=== PATIENT | female | born 1965 | race Caucasian/White ===

== ENCOUNTER → 2016-08-06 | Outpatient (CLI) | payer OTHER | LOC: NUC 07-25 09:21 | DX: Z13.820 Encounter for screening for osteoporosis (principal); M81.0 Age-related osteoporosis without current pathological fracture; Z78.0 Asymptomatic menopausal state; M85.80 Other specified disorders of bone density and structure, unspecified site ==

== ENCOUNTER 2017-02-11 00:36 | Emergency (ER) | payer OTHER ==
[~2017-02-11] VITALS: Ht 157.5 cm; Wt 41.1 kg
[2017-02-11] MEDS ORDERED: DOXYCYCLINE 10100 MG PO (00:48)
[2017-02-11] MEDS ORDERED: TEGRETOL XR400 MG PO (00:48)
[2017-02-11] MEDS ORDERED: KEPPRA 500 MG500 M1 PO (00:49)
[2017-02-11] MEDS ORDERED: LEVOTHYROXIN0.025 MG PO (00:49)
[2017-02-11] MEDS ORDERED: OYSTER SHELL C500 MG PO (00:56)
[2017-02-11] MEDS ORDERED: OMEPRAZOLE 20 M20 M1 PO (00:56)
[2017-02-11] MEDS ORDERED: METRONIDAZOLE45 GM TP (00:56)
[2017-02-11] MEDS ORDERED: MIRALAX255 GM PO (00:57)
[2017-02-11] MEDS ORDERED: PREPLUS CA-FE1 EACH PO (00:57)
[2017-02-11] MEDS ORDERED: BENECALORI7.5 KCAL/1 PO (00:58)
[2017-02-11] MEDS ORDERED: SORBITOL SOLUT500 ML PO (01:00)
[2017-02-11] MEDS ORDERED: VITAMIN D2000 UNIT PO (01:01)
[2017-02-11] MEDS ORDERED: NORCO 5-325 TA1 EACH PO (03:03)
[2017-02-11] MEDS ORDERED: IBUPROFEN 200200 M1 PO (03:03)
[2017-02-11] MEDS ORDERED: SENOKOT-S1 TA1 PO (03:03)
[2017-02-11 03:22] VITALS: BP 116/73
== END 2017-02-11 03:24 | disposition home or self-care (01) ==
LOC: ER 00:36
DX: S82.301A Unspecified fracture of lower end of right tibia, initial encounter for closed fracture (principal); S82.831A Other fracture of upper and lower end of right fibula, initial encounter for closed fracture; E03.9 Hypothyroidism, unspecified; F73 Profound intellectual disabilities; M19.90 Unspecified osteoarthritis, unspecified site; Z88.1 Allergy status to other antibiotic agents; X58.XXXA Exposure to other specified factors, initial encounter; Y93.89 Activity, other specified; Y92.89 Other specified places as the place of occurrence of the external cause; Y99.8 Other external cause status

== ENCOUNTER 2017-02-17 06:15 | Inpatient (IN) | payer OTHER ==
[~2017-02-17] VITALS: Ht 157.5 cm; Wt 40.8 kg
--- NOTE | ~2017-02-17 | O ---
[facility] [place] [address] OPERATIVE REPORT Name: RUBIO SANTOS JULIO CÉSAR Room #: 533-P [facility] IN M.R.#: [id number] Admission: 02/17/17 Attend Phys: Dirk Snider MD Discharge: 02/18/17 Date of : 69 Report #: [id number] THIS REPORT FOR: //name// CC: Marisol Snider DATE OF SERVICE: 02/17/2017 PREOPERATIVE DIAGNOSES: 1. Right tibia shaft fracture. 2. Right ankle retained hardware. POSTOPERATIVE DIAGNOSES: 1. Right tibia shaft fracture. 2. Right ankle retained hardware. PROCEDURE: 1. Right tibia intramedullary nail. 2. Right ankle hardware removal. SURGEON: Dirk Snider M.D. GARMENT FITTER: DARLEEN Torres, critical for positioning and safe performance of the procedure. ANESTHESIA: General. ESTIMATED BLOOD LOSS: Minimal. DRAINS: No drains. TOURNIQUET TIME: 15 minutes. COMPLICATIONS: There were no complications from the procedure. DESCRIPTION OF PROCEDURE: The patient was brought to the operating room where she was placed under general anesthesia. Once under adequate general anesthesia, her right lower extremity was prepped and draped in sterile manner. The extremity was elevated, exsanguinated, tourniquet placed to 250 mmHg. Utilizing fluoroscopy for guidance, the two distal medial malleolus screws were identified and subsequently a small 2 cm incision was made over the screw heads with dissection down to the screw heads and subsequent extraction of the screws with the small fragment screwdriver. Once these were removed, we proceeded to the knee and an anterior incision over the patella was made. This was dissected down to the paratenon, which was then incised exposing the tendon, which was then swept aside and a curved cannulated awl was placed down the anterior tibial [facility] [address] [place] [address] OPERATIVE REPORT Name: RUBIO SANTOS Room #: 533-P [facility] IN .R.#: [id number] Admission: 02/17/17 Attend Phys: Dirk Snider MD Discharge: 02/18/17 Date of : 69 Report #: [id number] ____. The guidewire was then placed down the shaft of the femur subsequently under fluoroscopic guidance and subsequently the tourniquet was let down. The bone was then reamed to 10 mm and a 9 mm tibial intramedullary nail from the [employer] set was then placed. Fixation proximally with two static locking screws was achieved and using the outrigger jig. Utilizing fluoroscopy distally two transverse locking screws were placed across the distal tibia. Excellent fixation and alignment was achieved in this manner. The wounds were irrigated copiously and closed with 2-0 Vicryl in the deep and subcutaneous tissues and lori for the skin. Wounds were dressed with Xeroform, 4 x 4s, and sterile soft compressive dressing with a short leg splint was placed. Tourniquet was let down at approximately 15 minutes. Toes were pink and warm with good capillary refill. There were no complications from the procedure. The patient tolerated the procedure well and went to the recovery room without incident. <ELECTRONICALLY SIGNED> By: Dirk Snider MD 02/19/17 1202 [id number] [id number] Dirk Snider MD /nt
[~2017-02-17 06:15] MED LIST: BENECALORI7.5 KCAL/1 PO; DOXYCYCLINE 10100 MG PO; IBUPROFEN 200200 M1 PO; KEPPRA 500 MG500 M1 PO; LEVOTHYROXIN0.025 MG PO; METRONIDAZOLE45 GM TP; MIRALAX255 GM PO; NORCO 5-325 TA1 EACH PO; OMEPRAZOLE 20 M20 M1 PO; OYSTER SHELL C500 MG PO; PREPLUS CA-FE1 EACH PO; SENOKOT-S TABL1 EACH PO; SENOKOT-S1 TA1 PO; SORBITOL SOLUT500 ML PO; TEGRETOL XR400 MG PO; VITAMIN D2000 UNIT PO
[2017-02-17 10:11] VITALS: BP 117/77
[2017-02-17 20:00] VITALS: BP 124/79
[2017-02-18] VITALS: BP 100/70
[2017-02-18 04:00] VITALS: BP 102/67
[2017-02-18 07:01] LABS: HEMATOCRIT 31.1 % (37.0-47.0); HEMOGLOBIN 10.7 gm/dL (12.0-15.0)
[2017-02-18 07:11] LABS: POTASSIUM 3.8 mmol/L (3.5-5.1)
[2017-02-18 07:15] VITALS: BP 110/76
== END 2017-02-18 16:45 | disposition hospice, home (50) | DRG 494 ==
LOC: TBA 06:15 → 5S 06:15 → PRE 08:39 → 5S 13:29
PROVIDERS: Orthopaedic Surgery Foot and Ankle Surgery
PROC: 0SPFX4Z Removal of Internal Fixation Device from Right Ankle Joint, External Approach (ICD-10-PCS; principal; 2017-02-17)
PROC: 0QHG06Z Insertion of Intramedullary Internal Fixation Device into Right Tibia, Open Approach (ICD-10-PCS; principal; 2017-02-17)
DX: S82.201A Unspecified fracture of shaft of right tibia, initial encounter for closed fracture (principal); S82.401A Unspecified fracture of shaft of right fibula, initial encounter for closed fracture; G40.909 Epilepsy, unspecified, not intractable, without status epilepticus; Z88.1 Allergy status to other antibiotic agents; Z79.899 Other long term (current) drug therapy; W18.39XA Other fall on same level, initial encounter; Y93.89 Activity, other specified; Y92.89 Other specified places as the place of occurrence of the external cause; Y99.8 Other external cause status
CPT/HCPCS: 10785; 50010; 50101; 50386; 50417; 50635; 51412; 55430; 56524; 56525; 56526; 62110; 62900; 70005

== ENCOUNTER 2018-02-18 16:16 | Inpatient (IN) | payer OTHER ==
[~2018-02-18] VITALS: Ht 157.5 cm; Wt 42.2 kg
--- NOTE | ~2018-02-18 | HC ---
[facility] [place] [address] CONSULTATION Name: DANIELLERUBIO JULIO CÉSAR Room #: 358-P ADM IN M.R.#: [id number] Admission: 02/18/18 Attend Phys: Porsche Recinos Discharge: Date of : 69 Report #: [id number] THIS REPORT FOR: //name// CC: Porsche Ordoñez DATE OF SERVICE: 02/19/2018 INFECTIOUS DISEASES CONSULTATION REASON FOR CONSULTATION: I was asked to evaluate concerning peritonitis and intra-abdominal abscess. HISTORY OF PRESENT ILLNESS: The patient is a 52-year-old with underlying cerebral palsy and mental retardation with seizure disorder, who lives in a correction. History was gleaned from the patient's family and her caregiver. Apparently, 5 days ago, developed some nausea and vomiting with anorexia. They could not determine whether she was having any abdominal discomfort otherwise. Over the ensuing several days, her stool output decreased. No fever, chills or sweats. She worsened and on 02/18/2018, presented to the Emergency Room. She had not eaten for several days. CT imaging showed evidence of a right lower abdomen fluid collection, consistent with abscess. There was inflammation at the cecum, suspecting a periappendiceal abscess. There was no free air in the abdomen. She was placed on IV antibiotics including Zosyn, given IV fluids and admitted to the medical menard. ALLERGIES: CLARITHROMYCIN. MEDICATIONS: As noted on her MAR, including Zosyn. PAST MEDICAL HISTORY: Infantile spasms, cerebral palsy and seizure disorder. She is nonverbal, unable to communicate, otherwise. Has had a previous ankle fracture with ORIF. FAMILY HISTORY: Otherwise, noncontributory. SOCIAL HISTORY: Lives in a correction and has attentive parents. Nonsmoker. No significant alcohol intake. REVIEW OF SYSTEMS: The patient was unable to give any details. From discussion with her caregiver, however, she has had no rash or decubiti. There has been no cough or sputum production. She has had no syncopal episodes or evidence of seizure. Unable to obtain any further history. PHYSICAL EXAMINATION: [facility] [address] [place] [address] CONSULTATION Name: RUBIO SANTOS JULIO CÉSAR Room #: 358-P [facility] IN M.R.#: [id number] Admission: 02/18/18 Attend Phys: Porsche Recinos Discharge: Date of : 69 Report #: [id number] VITAL SIGNS: Afebrile with stable vital signs. GENERAL: She was alert. She did not like to cooperate with exam. HEENT: Eyes unremarkable. Mouth was dry. No thrush. NECK: Supple. No adenopathy. LUNGS: Clear. HEART: Regular, without murmur. No gallop or rub. ABDOMEN: Mildly distended. Tender throughout. I could not localize specific point tenderness. No hepatosplenomegaly or mass. GENITOURINARY: External genitalia unremarkable. EXTREMITIES: Unremarkable. NEUROLOGICAL EXAMINATION: Nonfocal. LABORATORY STUDIES: CT scan imaging as noted above, with the addition of obstipation and chronic constipation with large amount of stool in the colon. She also has evidence of esophagitis with thickening and some inflammatory changes in the lower esophagus. Chest x-ray unremarkable, with ileus evident. Hemoglobin 10, platelet count 372,000 and white count 9.8. Creatinine 0.9. Liver function test normal. Urinalysis with 2+ protein, positive for bacteria. Lipase 552. Blood and urine cultures are pending. IMPRESSION: 1. A 52-year-old with intra-abdominal process. I am suspecting perforated appendicitis. In her age group, other inflammatory bowel disease, cancer or perforation due to obstipation also possible. Ischemic bowel seems less likely. In addition, has evidence of esophagitis. Likely has reflux. 2. Cerebral palsy. 3. Mental retardation. RECOMMENDATIONS: We will continue broad antibiotic coverage for intra-abdominal pathogens. We will arrange drainage procedure in Interventional Radiology. General Surgery consultation, for I suspect will need further intervention in the near future. Once we drain the abscess, we will send for bacterial culture. Follow laboratory studies, including CBC and chemistry. Repeat lipase to ensure this normalizes. May wish further gastroenterology evaluation of her esophagus at the time of surgery. Plan of care was discussed with the patient's family at the bedside and nursing staff. <ELECTRONICALLY SIGNED> By: Orlando Mai MD 02/20/18 1134 [id number] Orlando Mai MD /nt
[2018-02-18 16:29] VITALS: BP 96/68
[2018-02-18 16:57] LABS: HEMATOCRIT 36.3 % (37.0-47.0); HEMOGLOBIN 12.4 gm/dL (12.0-15.0); MCH 32.6 pg (26.0-34.0); MCV 95.8 fL (80.0-100.0); PLATELET COUNT 477 thou/uL (150-400); RBC 3.79 mil/uL (4.20-5.00); RDW 12.3 % (10.5-14.5); WBC 11.2 thou/uL (4.0-11.0)
[2018-02-18] MEDS ORDERED: TYLENOL325 MG PO (17:01)
[2018-02-18] MEDS ORDERED: PHENERGAN25 M1 RECTAL (17:02)
[2018-02-18 17:03] LABS: URINE BLOOD NEGATIVE (Negative); URINE CLARITY CLOUDY; URINE COLOR ORANGE; URINE GLUCOSE-RANDOM* NEGATIVE (Negative); URINE KETONES 1+ (Negative); URINE LEUKOCYTES-REFLEX NEGATIVE (Negative); URINE PROTEIN (DIPSTICK) 2+ (Negative); URINE SPECIFIC GRAVITY 1.025 (1.005-1.035)
[2018-02-18] MEDS ORDERED: MURINE EAR DROP15 ML OTIC (17:03)
[2018-02-18] MEDS ORDERED: LOPERAMIDE 2 MG2 M1 PO (17:03)
[2018-02-18 17:04] LABS: ICTOTEST (BILI CONFIRMATORY) Negative (Negative); URINE BILIRUBIN NEGATIVE (Negative); URINE NITRITE-REFLEX POSITIVE (Negative)
[2018-02-18] MEDS ORDERED: MUCINEX600 MG PO (17:04)
[2018-02-18] MEDS ORDERED: DULCOLAX5 MG RECTAL (17:04)
[2018-02-18 17:05] LABS: CALCIUM 10.3 mg/dL (8.5-10.1); CREATININE 0.9 mg/dL (0.6-1.0); POTASSIUM 4.2 mmol/L (3.5-5.1)
[2018-02-18] MEDS ORDERED: VALIUM5 MG RECTAL (17:05)
[2018-02-18 17:09] LABS: SQUAMOUS 4-10 Moderate /LPF (0-3); URINE WBC-REFLEX 0-5 Rare /HPF (0-5)
[2018-02-18 17:10] LABS: HYALINE CASTS 0-3 Few /LPF (None Seen); URINE RBC 3-10 Few /HPF (0-2)
[2018-02-18] MEDS ORDERED: ASPIRIN325 PO (17:10)
[2018-02-18 17:11] LABS: ALBUMIN 2.5 g/dL (3.4-5.0); TOTAL BILIRUBIN 0.5 mg/dL (<0.1-1.0); TOTAL PROTEIN 7.4 g/dL (6.4-8.2)
[2018-02-18 17:12] LABS: CALCIUM OXALATE >10 Many /LPF (None Seen)
[2018-02-18] MEDS ORDERED: BENECALORI7.5 KCAL/1 PO (17:12)
[2018-02-18] MEDS ORDERED: DOXYCYCLINE 10100 MG PO (17:13)
[2018-02-18] MEDS ORDERED: 24HR ALLERGY REL5 MG PO (17:14)
[2018-02-18] MEDS ORDERED: ATIVAN0.5 MG PO (17:15)
[2018-02-18 17:20] LABS: ABSOLUTE NEUTROPHILS 8.8 thou/uL (1.4-8.2); ANISOCYTOSIS 1+; ATYPICAL LYMPHS 1 %; POLYCHROMASIA OCCASIONAL
[2018-02-18 18:14] VITALS: BP 96/68
[2018-02-18 19:12] VITALS: BP 104/67
[2018-02-18] MEDS ORDERED: ROBITUSSIN100 MG/53 PO (19:52)
[2018-02-18 21:15] VITALS: BP 99/71
[2018-02-19] VITALS (14 sets, daily range): BP systolic 93–121; BP diastolic 49–74
[2018-02-19 06:16] LABS: CALCIUM 8.9 mg/dL (8.5-10.1); CREATININE 0.8 mg/dL (0.6-1.0); POTASSIUM 3.4 mmol/L (3.5-5.1)
[2018-02-19 06:19] LABS: ALBUMIN 2.1 g/dL (3.4-5.0); PHOSPHORUS 2.2 mg/dL (2.5-4.9)
[2018-02-19 11:25] LABS: HEMATOCRIT 29.6 % (37.0-47.0); MCH 33.3 pg (26.0-34.0); MCHC 33.7 g/dL (28.0-37.0); MCV 98.6 fL (80.0-100.0); RDW 12.6 % (10.5-14.5); WBC 9.8 thou/uL (4.0-11.0)
[2018-02-20 03:49] VITALS: BP 134/87
[2018-02-20 07:08] VITALS: BP 137/95
[2018-02-20 07:53] LABS: HEMATOCRIT 28.8 % (37.0-47.0); HEMOGLOBIN 9.7 gm/dL (12.0-15.0); MCHC 33.8 g/dL (28.0-37.0); MCV 97.5 fL (80.0-100.0); RBC 2.95 mil/uL (4.20-5.00); RDW 12.8 % (10.5-14.5); WBC 9.1 thou/uL (4.0-11.0)
[2018-02-20 08:29] LABS: ALBUMIN 2.2 g/dL (3.4-5.0); CALCIUM 8.5 mg/dL (8.5-10.1); CREATININE 0.8 mg/dL (0.6-1.0); PHOSPHORUS 1.3 mg/dL (2.5-4.9); POTASSIUM 3.4 mmol/L (3.5-5.1)
[2018-02-20 12:52] VITALS: BP 124/80
[2018-02-20 15:39] VITALS: BP 127/83
[2018-02-20 19:20] VITALS: BP 126/83
[2018-02-21 04:05] VITALS: BP 117/66
[2018-02-21 06:21] LABS: ALBUMIN 2.1 g/dL (3.4-5.0); CALCIUM 7.8 mg/dL (8.5-10.1); CREATININE 0.6 mg/dL (0.6-1.0); TOTAL BILIRUBIN 0.4 mg/dL (<0.1-1.0); TOTAL PROTEIN 5.4 g/dL (6.4-8.2)
[2018-02-21 06:37] LABS: POTASSIUM 2.9 mmol/L (3.5-5.1)
[2018-02-21 07:53] LABS: MAGNESIUM 1.7 mg/dL (1.8-2.4)
[2018-02-21 08:21] VITALS: BP 106/71
[2018-02-21 11:16] VITALS: BP 105/55
[2018-02-21 15:25] VITALS: BP 125/77
[2018-02-21 21:20] VITALS: BP 129/81
[2018-02-22 05:45] VITALS: BP 138/87
[2018-02-22 05:53] LABS: HEMATOCRIT 26.6 % (37.0-47.0); HEMOGLOBIN 9.1 gm/dL (12.0-15.0); MCH 32.6 pg (26.0-34.0); MCHC 34.3 g/dL (28.0-37.0); RBC 2.8 mil/uL (4.20-5.00); RDW 12.8 % (10.5-14.5); WBC 8.4 thou/uL (4.0-11.0)
[2018-02-22 06:00] LABS: MAGNESIUM 2.1 mg/dL (1.8-2.4); POTASSIUM 3.5 mmol/L (3.5-5.1)
[2018-02-22 07:30] VITALS: BP 115/69
[2018-02-22 19:10] VITALS: BP 115/79
[2018-02-23 03:30] VITALS: BP 128/93
[2018-02-23 07:53] VITALS: BP 133/81
[2018-02-23 11:50] VITALS: BP 113/74
[2018-02-23 17:38] VITALS: BP 125/75
[2018-02-23 19:30] VITALS: BP 151/89
[2018-02-24 04:45] VITALS: BP 135/73
[2018-02-24 07:07] LABS: HEMATOCRIT 25.7 % (37.0-47.0); HEMOGLOBIN 8.9 gm/dL (12.0-15.0); MCH 33.2 pg (26.0-34.0); MCHC 34.6 g/dL (28.0-37.0); MCV 95.9 fL (80.0-100.0); RBC 2.68 mil/uL (4.20-5.00); RDW 13.2 % (10.5-14.5); WBC 7.7 thou/uL (4.0-11.0)
[2018-02-24 07:31] LABS: CALCIUM 7.7 mg/dL (8.5-10.1); CREATININE 0.5 mg/dL (0.6-1.0); POTASSIUM 3.4 mmol/L (3.5-5.1)
[2018-02-24 08:04] VITALS: BP 124/81
[2018-02-24 11:28] VITALS: BP 104/69
[2018-02-24 16:02] VITALS: BP 129/91
[2018-02-24 19:40] VITALS: BP 137/84
[2018-02-25 03:30] VITALS: BP 145/89
[2018-02-25 07:48] VITALS: BP 144/98
[2018-02-25] MEDS ORDERED: CIPRO250 M1 PO (09:52)
[2018-02-25] MEDS ORDERED: FLAGYL500 MG PO (09:52)
[2018-02-25 10:45] VITALS: BP 144/98
[2018-02-25 12:02] VITALS: BP 144/98
== END 2018-02-25 12:06 | disposition home or self-care (01) | DRG 871 ==
LOC: ER 16:16 → EROBS 17:43 → 4W 17:43 → 3W 02-19 10:40 → ENTRNSPT 02-25 12:00 → EDTRNSPTSTS 02-25 12:02 → 3W 02-25 12:06
PROVIDERS: Emergency Medicine; Hospitalist; Internal Medicine; Nurse Practitioner Acute Care; Surgery
PROC: 0D9W30Z Drainage of Peritoneum with Drainage Device, Percutaneous Approach (ICD-10-PCS; principal; 2018-02-19)
PROC: 0Y9630Z Drainage of Left Inguinal Region with Drainage Device, Percutaneous Approach (ICD-10-PCS; 2018-02-19)
DX: A41.9 Sepsis, unspecified organism (principal); K35.2 Acute appendicitis with generalized peritonitis; E43 Unspecified severe protein-calorie malnutrition; K85.90 Acute pancreatitis without necrosis or infection, unspecified; N39.0 Urinary tract infection, site not specified; K56.609 Unspecified intestinal obstruction, unspecified as to partial versus complete obstruction; K56.7 Ileus, unspecified; Z68.1 Body mass index [BMI] 19.9 or less, adult; G40.909 Epilepsy, unspecified, not intractable, without status epilepticus; E03.9 Hypothyroidism, unspecified; G80.9 Cerebral palsy, unspecified; F79 Unspecified intellectual disabilities; B96.20 Unspecified Escherichia coli [E. coli] as the cause of diseases classified elsewhere; K59.09 Other constipation; E86.0 Dehydration; M81.0 Age-related osteoporosis without current pathological fracture; Z79.82 Long term (current) use of aspirin; Z79.899 Other long term (current) drug therapy; Z88.8 Allergy status to other drugs, medicaments and biological substances
CPT/HCPCS: 10040; 10080; 10779

== ENCOUNTER 2018-05-24 13:52 | Emergency (ER) | payer OTHER ==
[~2018-05-24] VITALS: Ht 147.3 cm; Wt 49.9 kg
[~2018-05-24 13:52] MED LIST changes: +24HR ALLERGY REL5 MG PO; +ASPIRIN325 PO; +ATIVAN0.5 MG PO; +CIPRO250 M1 PO; +DULCOLAX5 MG RECTAL; +FLAGYL500 MG PO; +LOPERAMIDE 2 MG2 M1 PO; +MUCINEX600 MG PO; +MURINE EAR DROP15 ML OTIC; +PHENERGAN25 M1 RECTAL; +ROBITUSSIN100 MG/53 PO; +TYLENOL325 MG PO; +VALIUM5 MG RECTAL
== END 2018-05-24 17:10 | disposition home or self-care (01) ==
LOC: ER 13:52
DX: S09.90XA Unspecified injury of head, initial encounter (principal); G40.909 Epilepsy, unspecified, not intractable, without status epilepticus; E03.9 Hypothyroidism, unspecified; M81.0 Age-related osteoporosis without current pathological fracture; Z79.899 Other long term (current) drug therapy; Z88.1 Allergy status to other antibiotic agents; W18.09XA Striking against other object with subsequent fall, initial encounter; Y93.89 Activity, other specified; Y92.89 Other specified places as the place of occurrence of the external cause; Y99.8 Other external cause status

== ENCOUNTER 2018-06-05 09:12 | Emergency (ER) | payer OTHER ==
[~2018-06-05] VITALS: Ht 157.5 cm; Wt 49.9 kg
[2018-06-05 09:13] VITALS: BP 119/98
== END 2018-06-05 09:55 | disposition home or self-care (01) ==
LOC: ER 09:12
DX: S01.01XD Laceration without foreign body of scalp, subsequent encounter (principal); G40.909 Epilepsy, unspecified, not intractable, without status epilepticus; E03.9 Hypothyroidism, unspecified; M81.0 Age-related osteoporosis without current pathological fracture; Z88.1 Allergy status to other antibiotic agents; X58.XXXD Exposure to other specified factors, subsequent encounter

== ENCOUNTER → 2018-06-11 | Outpatient (CLI) | payer OTHER ==
[2018-06-11 13:10] LABS: CREATININE 0.8 mg/dL (0.6-1.0)
== END ==
LOC: CAT 12:02
PROVIDERS: Surgery
DX: D25.9 Leiomyoma of uterus, unspecified (principal); K65.1 Peritoneal abscess

== ENCOUNTER 2019-07-17 21:02 | Emergency (ER) | payer OTHER ==
[~2019-07-17] VITALS: Ht 152.4 cm; Wt 54.4 kg
[2019-07-17 22:51] LABS: URINE BILIRUBIN NEGATIVE (Negative); URINE BLOOD NEGATIVE (Negative); URINE CLARITY CLEAR; URINE COLOR YELLOW; URINE GLUCOSE-RANDOM* NEGATIVE (Negative); URINE KETONES NEGATIVE (Negative); URINE LEUKOCYTES-REFLEX NEGATIVE (Negative); URINE NITRITE-REFLEX NEGATIVE (Negative); URINE PROTEIN (DIPSTICK) 2+ (Negative); URINE UROBILINOGEN 0.2 E.U./dl (0.2-1.0)
[2019-07-17 22:56] LABS: ABSOLUTE NEUTROPHILS 8.1 thou/uL (1.4-8.2); BASOPHILS 0.4 % (0.0-2.0); EOSINOPHILS 0.1 % (0.0-3.0); HEMATOCRIT 37.3 % (37.0-47.0); HEMOGLOBIN 12.1 gm/dL (12.0-15.0); LYMPHOCYTES 10.1 % (24.0-44.0); MCHC 32.6 g/dL (28.0-37.0); MCV 95.1 fL (80.0-100.0); MONOCYTES 4.8 % (1.0-8.0); PLATELET COUNT 219 thou/uL (150-400); POLYS 84.6 % (36.0-66.0); RBC 3.92 mil/uL (4.20-5.00); RDW 13.1 % (10.5-14.5); WBC 9.6 thou/uL (4.0-11.0)
[2019-07-17 23:06] LABS: ANION GAP 10 mmol/L (7-16); BUN 17 mg/dL (7-18); CALCIUM 9.4 mg/dL (8.5-10.1); CHLORIDE 108 mmol/L (98-107); CO2 28 mmol/L (21-32); CREATININE 0.8 mg/dL (0.6-1.0); GLUCOSE 124 mg/dL (74-106); POTASSIUM 4.4 mmol/L (3.5-5.1); SODIUM 146 mmol/L (136-145)
[2019-07-17 23:10] LABS: BACTERIA-REFLEX None Seen /HPF (None Seen); CASTS None Seen /LPF (None Seen); CRYSTALS None Seen /LPF (None Seen); MUCUS None Seen strn/LPF (None Seen); SQUAMOUS None Seen /LPF (0-3); URINE RBC None Seen /HPF (0-2); URINE WBC-REFLEX None Seen /HPF (0-5)
[2019-07-17 23:21] LABS: ALBUMIN 2.8 g/dL (3.4-5.0); DIRECT BILIRUBIN < 0.1 mg/dL (<0.1-0.2); SGOT 85 U/L (15-37); SGPT 55 U/L (30-65); TOTAL BILIRUBIN 0.3 mg/dL (<0.1-1.0); TOTAL PROTEIN 7.6 g/dL (6.4-8.2)
[2019-07-18 00:30] VITALS: BP 110/69
== END 2019-07-18 00:30 | disposition home or self-care (01) ==
LOC: ER 21:02
PROVIDERS: Emergency Medicine
DX: R50.9 Fever, unspecified (principal); E03.9 Hypothyroidism, unspecified; M41.9 Scoliosis, unspecified; M81.0 Age-related osteoporosis without current pathological fracture; Z88.1 Allergy status to other antibiotic agents

== ENCOUNTER 2019-08-01 20:50 | Emergency (ER) | payer OTHER ==
[~2019-08-01] VITALS: Ht 160 cm; Wt 59.0 kg
[2019-08-01 22:01] VITALS: BP 165/112
== END 2019-08-01 22:04 | disposition home or self-care (01) ==
LOC: ER 20:50
DX: Z04.3 Encounter for examination and observation following other accident (principal); G40.909 Epilepsy, unspecified, not intractable, without status epilepticus; E03.9 Hypothyroidism, unspecified; M81.0 Age-related osteoporosis without current pathological fracture; Z88.1 Allergy status to other antibiotic agents; W05.0XXA Fall from non-moving wheelchair, initial encounter; Y93.89 Activity, other specified; Y92.89 Other specified places as the place of occurrence of the external cause; Y99.8 Other external cause status

== ENCOUNTER 2019-08-03 11:50 | Emergency (ER) | payer OTHER ==
[~2019-08-03] VITALS: Ht 152.4 cm; Wt 43.1 kg
[2019-08-03 13:37] VITALS: BP 112/76
== END 2019-08-03 13:38 | disposition home or self-care (01) ==
LOC: ER 11:50
DX: S30.810A Abrasion of lower back and pelvis, initial encounter (principal); E03.9 Hypothyroidism, unspecified; K21.9 Gastro-esophageal reflux disease without esophagitis; Z88.1 Allergy status to other antibiotic agents; W19.XXXA Unspecified fall, initial encounter; Y93.89 Activity, other specified; Y92.128 Other place in nursing home as the place of occurrence of the external cause; Y99.8 Other external cause status

== ENCOUNTER 2019-10-19 22:08 | Inpatient (IN) | payer OTHER ==
[~2019-10-19] VITALS: Ht 157.5 cm; Wt 38.6 kg
[2019-10-19 22:17] VITALS: BP 98/75
[2019-10-19 22:45] LABS: BE(vivo) -12.2 mmol/L (-2 to +3); HCO3 12.4 mmol/L (22.0-26.0); PCO2 25.3 mmHg (35.0-45.0); PO2 76.7 mmHg (80.0-100.0); sO2 94.5 % (92.0-98.0)
[2019-10-19 22:46] LABS: pH 7.307 (7.360-7.450)
[2019-10-19 23:07] LABS: HEMATOCRIT 41.4 % (37.0-47.0); HEMOGLOBIN 12.7 gm/dL (12.0-15.0); MCH 27.5 pg (26.0-34.0); MCHC 30.6 g/dL (28.0-37.0); MCV 89.8 fL (80.0-100.0); PLATELET COUNT 707 thou/uL (150-400); RBC 4.62 mil/uL (4.20-5.00); RDW 15.9 % (10.5-14.5)
[2019-10-19 23:09] LABS: URINE BILIRUBIN 1+ (Negative); URINE BLOOD NEGATIVE (Negative); URINE CLARITY CLEAR; URINE COLOR BROWN; URINE GLUCOSE-RANDOM* NEGATIVE (Negative); URINE KETONES NEGATIVE (Negative); URINE LEUKOCYTES-REFLEX NEGATIVE (Negative); URINE NITRITE-REFLEX NEGATIVE (Negative); URINE PROTEIN (DIPSTICK) TRACE (Negative); URINE SPECIFIC GRAVITY >= 1.030 (1.005-1.035)
[2019-10-19 23:10] LABS: ANION GAP 23 mmol/L (7-16); BUN 55 mg/dL (7-18); CALCIUM 9.3 mg/dL (8.5-10.1); CHLORIDE 106 mmol/L (98-107); CO2 21 mmol/L (21-32); CREATININE 2.3 mg/dL (0.6-1.0); GLUCOSE 117 mg/dL (74-106); POTASSIUM 3.6 mmol/L (3.5-5.1); SODIUM 150 mmol/L (136-145)
[2019-10-19 23:17] LABS: AMP/METHAMP Negative (Negative); BARBITURATES Negative (Negative); BENZODIAZEPINES Negative (Negative); COCAINE Negative (Negative); METHADONE Negative (Negative); OPIATES Negative (Negative); PCP Negative (Negative)
[2019-10-19 23:21] LABS: ALBUMIN 2.2 g/dL (3.4-5.0); LIPASE 48 U/L (73-393); MAGNESIUM 3.7 mg/dL (1.8-2.4); SGOT 43 U/L (15-37); SGPT 31 U/L (30-65); TOTAL BILIRUBIN 0.5 mg/dL (<0.1-1.0); TOTAL PROTEIN 6.5 g/dL (6.4-8.2); TROPONIN-I <0.06 ng/mL (<0.06)
[2019-10-19] MEDS ORDERED: FLEET ENEMA133 ML RECTAL ×2 (23:41→23:42)
[2019-10-19] MEDS ORDERED: EXCEDRIN MIGRA1 EACH PO (23:44)
[2019-10-19] MEDS ORDERED: DOXYCYCLINE HYC20 MG PO (23:45)
[2019-10-19 23:54] LABS: ABSOLUTE NEUTROPHILS 8.7 thou/uL (1.4-8.2); ANISOCYTOSIS 1+; PLATELET ESTIMATE MARKEDLY INCREASED; POIKILOCYTOSIS 1+; POLYCHROMASIA 1+
[2019-10-20] VITALS (7 sets, daily range): BP systolic 72–135; BP diastolic 15–64
--- NOTE | 2019-10-20 04:00 | NUR ---
RECEIVED PT FROM ED ,PT HAD SOFT WRIST RESTAINTS ON TO PREVENT PT FROM PULLING OUT NG AND ROSALES CATH AND IV LINE. PT APEARS RESTLESS AT TIMES, NG PLACED ON INTERMITTMENT SUCTION , WITH 300ML OF BROWN OUTPUT NOTED ONCE GOMCO TURNED ON. IV FLUIDS PLACED ON INFUSION PUMP. PT ASSESSMNET COMPLETED COLOR COATER PLACED ON PT SHOWS [address] , LINDO BRADLEY LINEBACKER CREWMEMBER NOTIFED OF LOW BP AND HIGH HEART RATE.FATHER CALLED TO OBTAIN HISTORY. DATA BASE COMPLETED. WILL CONITUNE TO MONITOR AND REPORT CHANGES OR ABNORMAL FINDINGS.
[2019-10-20 05:56] LABS: ALBUMIN 1.4 g/dL (3.4-5.0); CALCIUM 6.2 mg/dL (8.5-10.1); CREATININE 1.4 mg/dL (0.6-1.0); POTASSIUM 3.3 mmol/L (3.5-5.1); TOTAL BILIRUBIN 0.8 mg/dL (<0.1-1.0); TOTAL PROTEIN 4.4 g/dL (6.4-8.2)
--- NOTE | 2019-10-20 09:46 | EKG ---
[facility] [place] [address] ELECTROCARDIOGRAM REPORT Name: RUBIO SANTOS Room #: 202- ADM IN M.R.#: [id number] Admission: 10/20/19 Attend Phys: Ken Santos MD Discharge: Date of : 69 Report #: [id number] THIS REPORT FOR: cc: [facility] - Clinic physician unknown [facility] - Clinic physician unknown Praveen Ford MD [facility] THIS REPORT FOR: //name// [facility] ED Test Date: 2019-10-19 Test Time: 23:02:00 Pat Name: RUBIO SANTOS Department: Room: [facility] Gender: F Frequency Checker: NO : 1965 Requested By: Orlando Romero Order Number: [id number] MD: Praveen Ford Measurements Intervals [place] Rate: 145 P: 6 DC: 72 QRS: 62 QRSD: 82 T: 141 QT: 331 QTc: 514 Interpretive Statements Baseline artifact limits ST segment and rhythm assessment Sinus tachycardia ST and T wave abnormality, cannot rule out inferior injury pattern No previous ECG available for comparison Recommend repeat tracing given marked artifact. Electronically Signed On 10-20-2019 9:45:27 CDT by Praveen Ford [email or web address] <ELECTRONICALLY SIGNED> By: Praveen Ford MD, [facility] 10/20/19 0945 01 01 Praveen Ford MD, [facility] /EPI
--- NOTE | 2019-10-20 09:47 | EKG ---
[facility] [place] [address] ELECTROCARDIOGRAM REPORT Name: RUBIO SANTOS Room #: 202- ADM IN M.R.#: [id number] Admission: 10/20/19 Attend Phys: Ken Santos MD Discharge: Date of : 69 Report #: [id number] THIS REPORT FOR: cc: [facility] - Clinic physician unknown [facility] - Clinic physician unknown Praveen Ford MD [facility] ~ THIS REPORT FOR: //name// [facility] ED Test Date: 2019-10-20 Test Time: 00:09:18 Pat Name: RUBIO SANTOS Department: Room: [facility] Gender: F Import And Export Clerk: : 1965 Requested By: Orlando Romero Order Number: [id number] MD: Praveen Ford Measurements Intervals [place] Rate: 141 P: 38 PA: 125 QRS: 57 QRSD: 75 T: 163 QT: 323 QTc: 495 Interpretive Statements Sinus tachycardia Nonspecific ST and T wave abnormality Borderline prolonged QT interval No previous ECG available for comparison Electronically Signed On 10-20-2019 9:45:56 CDT by Praveen Ford [email or web address] <ELECTRONICALLY SIGNED> By: Praveen Ford MD, FAC 10/20/19 0945 0009 [id number] Praveen Ford MD, [facility] /EPI
--- NOTE | 2019-10-20 14:23 | NUR ---
patient admits from [facility] grp home with ischesmic bowel. patient non verbal and hx of MR. spoke with phys and elects pallative care. Called father in room and spoke with him regarding hospice services. Father reports change in condition and she may not "make it through the day." Discussed with father casemgt will call tomorrow. Sp with RN who reports her heart rate is increasing and patient with comfort medications on board. Sp with Ar[facility] and [facility] at [facility] and updated.
--- NOTE | 2019-10-20 17:49 | NUR ---
ASSUMED CARE 0700. ALERT, NON VERBAL, SEVER RETARDATION, PATIENT MOVED TO COMFORT CARE PER PT'S FATHER DPOA, DR MARIEE AND DR BUSTILLO SPOKE TO DPOA REGARDING PT'S CONDITION OF BOWEL OBSTRUCTION DISCUTION OF OUTCOME GIVEN TO DPOA. FATHER DECLINING SURGERY. PAIN MEDS GIVEN HOURLY FOR PAIN CONTROL. ANTI-ANXIETY GIVEN ORDERED. NG TUBE REMAINS IN PLACE AT #65 WITH MINIMAL OUTPUT APPROXIMATLE #30ML. ROSALES OUTPUT 300ML. FATHER BEDSIDE AT THIS TIME. FATHER UNDERSTAND PATIENT COULD PASS WITHIN THE NEXT 24 HOURS. RESTRAINTS REMOVED AFTER 1400. CONTINUE TO MONITOR.
--- NOTE | 2019-10-20 20:07 | NUR ---
PATIENT [address]. FATHER (DPOA) BEDSIDE AT TIME OF . PRIMARY NURSE ASSESSED PATIENT WITH NO AUDABLE HEART SOUNDS OR RESPIRATIONS. NOTIFIED DR BUSTILLO AND DR MARIEE OF EXPIRATION. NOTIFIED PERSONAL COMPANION. FATHER TOOK PATIENTS PERSONAL BELONGINGS HOME. PACKET COMPLETED. BODY PLACED IN BAG TO BE DISCHARGED TO HOME.
== END 2019-10-20 19:11 | DRG 871 ==
LOC: ER 22:08 → EROBS 10-20 01:07 → 2N 10-20 01:07
PROVIDERS: Emergency Medicine; ADMIT Internal Medicine
PROC: 0D9670Z Drainage of Stomach with Drainage Device, Via Natural or Artificial Opening (ICD-10-PCS; principal; 2019-10-20)
DX: A41.9 Sepsis, unspecified organism (principal); E43 Unspecified severe protein-calorie malnutrition; J96.01 Acute respiratory failure with hypoxia; K55.9 Vascular disorder of intestine, unspecified; K56.609 Unspecified intestinal obstruction, unspecified as to partial versus complete obstruction; N17.9 Acute kidney failure, unspecified; F73 Profound intellectual disabilities; E87.0 Hyperosmolality and hypernatremia; Z68.1 Body mass index [BMI] 19.9 or less, adult; R65.20 Severe sepsis without septic shock; E03.9 Hypothyroidism, unspecified; M41.9 Scoliosis, unspecified; M81.0 Age-related osteoporosis without current pathological fracture; L68.0 Hirsutism; E86.0 Dehydration; G40.909 Epilepsy, unspecified, not intractable, without status epilepticus; Z66 Do not resuscitate; E87.6 Hypokalemia; E83.51 Hypocalcemia; K63.89 Other specified diseases of intestine; Z79.899 Other long term (current) drug therapy; Z79.82 Long term (current) use of aspirin; Z88.1 Allergy status to other antibiotic agents; Z99.3 Dependence on wheelchair
CPT/HCPCS: 10081